=== PATIENT | male | born 2005 | race Caucasian/White ===

== ENCOUNTER 2023-02-04 15:11 | Outpatient (CLI) | payer OTHER | END 2023-02-04 15:12 | disposition home or self-care (01) | LOC: SCSRAD 15:11 | PROVIDERS: ATTEND Family Medicine | DX: S69.91XA Unspecified injury of right wrist, hand and finger(s), initial encounter (principal); S62.662A Nondisplaced fracture of distal phalanx of right middle finger, initial encounter for closed fracture ==

== ENCOUNTER 2023-12-20 15:22 | Outpatient (CLI) | payer OTHER | END 2023-12-20 15:23 | disposition home or self-care (01) | LOC: SCSRAD 15:22 | PROVIDERS: ATTEND Physician Assistant | DX: S99.922A Unspecified injury of left foot, initial encounter (principal); S91.312A Laceration without foreign body, left foot, initial encounter ==